=== PATIENT | male | born 2000 | race Two or more races ===

== ENCOUNTER 2020-12-09 19:09 | Emergency (ER) | payer BC, OTHER ==
[~2020-12-09] VITALS: Ht 170.2 cm; Wt 86.2 kg
[2020-12-09 19:44] VITALS: BP 155/96
== END 2020-12-09 20:54 | disposition home or self-care (01) ==
LOC: ER 19:11
DX: S00.03XA Contusion of scalp, initial encounter (principal); F17.210 Nicotine dependence, cigarettes, uncomplicated; Y08.89XA Assault by other specified means, initial encounter; Y93.89 Activity, other specified; Y92.89 Other specified places as the place of occurrence of the external cause; Y99.8 Other external cause status
CPT/HCPCS: 70450